=== PATIENT | male | born 1965 | race Caucasian/White ===

== ENCOUNTER 2022-02-05 14:35 | Day surgery (SDC) | payer MEDICARE ==
[2022-01-30 11:21] LABS: BASOPHILS # (AUTO) 0.1 X10'3 (0-0.2); BASOPHILS % (AUTO) 0.8 % (0-1); EOSINOPHILS # (AUTO) 0.1 X10'3 (0-0.9); EOSINOPHILS % (AUTO) 1.5 % (0-6); HEMATOCRIT 41.2 % (42.0-52.0); HEMOGLOBIN 14.1 g/dl (14.0-17.9); LYMPHOCYTES # (AUTO) 2.3 X10'3 (1.1-4.8); LYMPHOCYTES % (AUTO) 25.2 % (21-51); MEAN CORPUSCULAR HEMOGLOBIN 30.1 PG (27.0-31.0); MEAN CORPUSCULAR HGB CONC 34.4 g/dL (33.0-36.5); MEAN CORPUSCULAR VOLUME 87.6 FL (78-98); MEAN PLATELET VOLUME 8.3 FL (7.4-10.4); MONOCYTES # (AUTO) 0.5 X10'3 (0-0.9); MONOCYTES % (AUTO) 5.8 % (2-12); NEUTROPHILS % (AUTO) 66.7 % (42-75); PLATELET COUNT 161 X10'3 (140-440); RED CELL DISTRIBUTION WIDTH 13.2 % (11.5-14.5)
[2022-01-30 11:40] LABS: APTT 28 SECONDS (22-32)
[2022-01-30 12:14] LABS: ALBUMIN 4.4 G/DL (3.4-5.0); ANION GAP 11 (8-16); BLOOD UREA NITROGEN 12 MG/DL (7-18); BUN/CREATININE RATIO 15.4 (5.4-32.0); CHLORIDE 106 MMOL/L (99-107); CHOL/HDL RATIO 3.8 (0.00-4.99); CHOLESTEROL 170 MG/DL (0-200); CREATININE 0.78 MG/DL (0.60-1.10); GLUCOSE 92 MG/DL (70-104); HDL CHOLESTEROL 45 MG/DL (35-60); LDL CHOLESTEROL 95 MG/DL (50-100); POTASSIUM 4.2 MMOL/L (3.5-5.1); SODIUM 142 MMOL/L (135-145); TOTAL CARBON DIOXIDE 25.3 MMOL/L (24-32); TRIGLYCERIDES 102 MG/DL (20-135); eGFR > 90 ML/MIN
[~2022-02-05] VITALS: Ht 177.8 cm; Wt 114.0 kg
[2022-02-05] VITALS (9 sets, daily range): BP systolic 115–133; BP diastolic 75–90
[2022-02-05] MEDS ORDERED: LIDOcaine/PRILOcaine 5gm cream TP ONE ×2 (14:55→15:00)
[2022-02-05] MEDS ORDERED: normal saline 1,000 ML IV SCH (15:00)
[2022-02-05] MEDS ORDERED: diphenhydrAMINE 25mg capsule PO PRN (15:00)
[2022-02-05] MEDS ORDERED: LORazepam 0.5 MG tablet PO PRN (15:00)
[2022-02-05] MEDS ORDERED: ROSU20TA2 PO (15:20)
[2022-02-05] MEDS ORDERED: METO-539 PO (15:20)
[2022-02-05] MEDS ORDERED: MULT-1085 PO (15:20)
[2022-02-05] MEDS ORDERED: ASPI-1265 PO (15:20)
[2022-02-05] MEDS ORDERED: GABA600T13 PO (15:20)
[2022-02-05] MEDS ORDERED: IBUP-2417 PO (15:20)
[2022-02-05] MEDS ORDERED: verapamil 2.5 mg/ml inj IV ONE (16:09)
[2022-02-05] MEDS ORDERED: fentaNYL/PF 50MCG/1 ML 2ML syringe ONE (16:10)
[2022-02-05] MEDS ORDERED: midazolam 1 mg/ML 2ml injection ONE (16:10)
[2022-02-05] MEDS ORDERED: nitroGLYCERIN-Tridil 50MG/D5W 250 ML IV ONE (16:10)
[2022-02-05] MEDS ORDERED: iohexol 350MG/ML 100ml bottle IV ONE (16:10)
[2022-02-05] MEDS ORDERED: heparin 1,000unit/ml 10ml vial 10 ML ONE (16:10)
[2022-02-05] MEDS ORDERED: HYDROcodone/acetaminophen 5mg/325mg tablet PO PRN (18:55)
[2022-02-05] MEDS ORDERED: HYDROcodone/acetaminophen 10/325mg tab PO PRN (18:55)
== END 2022-02-05 20:45 | disposition home or self-care (01) ==
LOC: SSTAY O 14:35
PROVIDERS: ATTEND Internal Medicine Interventional Cardiology
DX: R94.39 Abnormal result of other cardiovascular function study (principal); R07.89 Other chest pain; I25.10 Atherosclerotic heart disease of native coronary artery without angina pectoris; I10 Essential (primary) hypertension; E78.5 Hyperlipidemia, unspecified; Z79.82 Long term (current) use of aspirin; Z79.899 Other long term (current) drug therapy
CPT/HCPCS: 36415; 80048; 80061; 85025; 85610; 85730; 93458; 99152; 99153; A6258; C1760; C1769; C1894; J1644; J2250; J3010; J3490; J7030; Q0163; Q9967; 93005; A4620; A5120; A6402

== ENCOUNTER 2022-03-16 11:45 | Inpatient (IN) | payer MEDICARE, SELFPAY ==
[2022-03-15 15:15] LABS: BASOPHILS % (AUTO) 0.7 % (0-1); EOSINOPHILS # (AUTO) 0.1 X10'3 (0-0.9); EOSINOPHILS % (AUTO) 1.5 % (0-6); LYMPHOCYTES # (AUTO) 2.2 X10'3 (1.1-4.8); LYMPHOCYTES % (AUTO) 30.5 % (21-51); MEAN CORPUSCULAR HEMOGLOBIN 30.4 PG (27.0-31.0); MEAN CORPUSCULAR HGB CONC 34.8 g/dL (33.0-36.5); MEAN CORPUSCULAR VOLUME 87.3 FL (78-98); MEAN PLATELET VOLUME 9.4 FL (7.4-10.4); MONOCYTES # (AUTO) 0.7 X10'3 (0-0.9); MONOCYTES % (AUTO) 9.7 % (2-12); NEUTROPHILS # (AUTO) 4.1 X10'3 (1.8-7.7); NEUTROPHILS % (AUTO) 57.6 % (42-75); PRE OP HEMATOCRIT 39.2 % (42.0-52.0); PRE OP HEMOGLOBIN 13.6 g/dL (14.0-17.9); PRE OP PLATELET COUNT 152 X10'3 (140-440); RED BLOOD COUNT 4.49 X10'6 (4.70-6.10); RED CELL DISTRIBUTION WIDTH 13.2 % (11.5-14.5)
[2022-03-15 15:27] LABS: PRE OP INR 1.1 INR; PRE OP PROTIME 10.9 SECONDS (9.0-12.0)
[2022-03-15 15:31] LABS: ALBUMIN/GLOBULIN RATIO 0.9 (1.1-1.5); ALKALINE PHOSPHATASE 55 IU/L (46-116); BLOOD UREA NITROGEN 11 MG/DL (7-18); BUN/CREATININE RATIO 12.2 (5.4-32.0); CHLORIDE 106 MMOL/L (99-107); PRE OP ALT 32 U/L (30-65); PRE OP ANION GAP 7 (8-16); PRE OP AST 19 U/L (10-37); PRE OP BILIRUB, TOTAL 0.3 MG/DL (0.0-1.0); PRE OP GLUCOSE 86 MG/DL (70-104); PRE OP POTASSIUM 4.2 MMOL/L (3.4-5.1); PRE OP SODIUM 142 MMOL/L (135-145); TOTAL CARBON DIOXIDE 29.2 MMOL/L (24-32); TOTAL PROTEIN 8.3 G/DL (6.4-8.2); eGFR 87 ML/MIN
[2022-03-15 15:35] LABS: HEMOGLOBIN A1C 5.4 % (4.5-6.2)
[2022-03-15 16:13] LABS: CLARITY,URINE SLIGHTLY CLOUDY (Clear); COLOR,URINE YELLOW (Yellow); GLUCOSE, URINE NEGATIVE (Neg); KETONES,URINE NEGATIVE (Neg); LEUKOCYTE ESTERASE ,URINE NEGATIVE (Neg); NITRITES, URINE NEGATIVE (Neg); OCCULT BLOOD,URINE NEGATIVE (Neg); PROTEIN,URINE NEGATIVE (Neg); UROBILINOGEN,URINE 0.2 E.U/dL (0.2-1.0)
[2022-03-15 16:18] LABS: UA COLLECTION TYPE CLN CATCH MIDSTREAM
[2022-03-15 16:25] LABS: BACTERIA,URINE NONE SEEN /HPF (Neg); RBC,URINE NONE SEEN /HPF (0-2); SQUAMOUS EPITHELIAL CELL,UR NONE SEEN /LPF (FEW)
[2022-03-15 16:26] LABS: RENAL CELLS, URINE FEW /HPF
[2022-03-15 16:27] LABS: AMORPHOUS PHOSPHATES 2+; WBC,URINE 0-4 /HPF (0-4)
[~2022-03-16] VITALS: Ht 177.8 cm; Wt 257.6 kg
[2022-03-16 06:36] LABS: ABG BASE EXCESS 0.8 mmol/L (-2.0-2.0); ABG HCO3 25.7 mmol/L (22.0-26.0); ABG OXYGEN SATURATION 94.8 % (94-97); ABG PCO2 (T) 42.1 mmHg (35.0-48.0); ALLEN'S TEST POSITIVE; FCOHb 0.5 % (0.0-3.9); FMetHb 0.1 % (0.0-1.5); FO2Hb 94.2 % (94-97); TOTAL HEMOGLOBIN 14.3 G/dl (14.0-18.0)
[~2022-03-16 11:45] MED LIST: ASPI-1265 PO; DOCUMENT DATE & TIME OF BETA-BLOCKER PO ONE; GABA600T13 PO; IBUP-2417 PO; METO-539 PO; MULT-1085 PO; ROSU20TA2 PO; albuterol 2.5 MG/3 ML nebule NEB ONE; mupirocin 2% nasal ointment 1gm UD NS ONE
[2022-03-17] VITALS (20 sets, daily range): BP systolic 95–143; BP diastolic 50–77
[2022-03-17] MEDS ORDERED: ringers solution, lacted 1,000 ML IV SCH (05:00)
[2022-03-17] MEDS ORDERED: vancomycin 1,500 MG in NS 300ml IV soln IV ONE (05:30)
[2022-03-17] MEDS ORDERED: Insulin Reg/NS 100units/100mL 100 ML IV SCH ×2 (05:30→11:10)
[2022-03-17] MEDS ORDERED: LORazepam 2 mg/ml vial IV ONE (05:30)
[2022-03-17] MEDS ORDERED: ceFAZolin inj. 2,000 MG in dextrose 5%-water 100 ML IV ONE (05:30)
[2022-03-17] MEDS ORDERED: famotidine 20mg tablet PO ONE (05:30)
[2022-03-17] MEDS ORDERED: mupirocin 2% nasal ointment 1gm UD NS ONE (05:30)
[2022-03-17] MEDS ORDERED: DOCUMENT DATE & TIME OF BETA-BLOCKER PO ONE (05:30)
[2022-03-17] MEDS ORDERED: epiNEPHrine 1 mg/ml inj ONE (05:39)
[2022-03-17] MEDS ORDERED: ceFAZolin 1000mg inj ONE (05:39)
[2022-03-17] MEDS ORDERED: LORazepam 2 mg/ml vial ONE (06:42)
[2022-03-17] MEDS ORDERED: SUfentanil 50mcg/ml 1ml amp IV ONE (07:37)
[2022-03-17] MEDS ORDERED: DOPamine/D5W 400mg/250ml bag IV ONE (07:40)
[2022-03-17] MEDS ORDERED: aminophylline 500mg/20ml vial ONE (07:40)
[2022-03-17] MEDS ORDERED: LIDOCAINE 1% w/preservative (10 MG/ML) inj. 10mL VIAL ONE (07:40)
[2022-03-17] MEDS ORDERED: isoflurane 100ml inhalation liquid IH ONE (07:40)
[2022-03-17] MEDS ORDERED: nitroGLYCERIN in D5W 50mg/250ml (Tridil) infusion IV ONE (07:40)
--- NOTE | 2022-03-17 07:45 | NUR ---
Patient to [facility]
[2022-03-17] MEDS ORDERED: heparin 10,000 units/1 ML INJ ONE ×2 (08:00)
[2022-03-17] MEDS ORDERED: calcium chloride 100 MG/1 ML inj IV ONE (08:00)
[2022-03-17] MEDS ORDERED: mannitol 12.5gm/50mL VIAL IV ONE (08:00)
[2022-03-17] MEDS ORDERED: NORepinephrine 1 mg/ml inj IV ONE (08:00)
[2022-03-17] MEDS ORDERED: methylPREDNISolone sod succ 1000mg vial ONE (08:00)
[2022-03-17] MEDS ORDERED: aminocaproic acid 250 MG/1 ML inj. ONE (08:00)
[2022-03-17] MEDS ORDERED: sodium bicarbonate (8.4%) 1 mEq/ml syringe ONE (08:00)
[2022-03-17] MEDS ORDERED: heparin 10,000 units/1 ML INJ IR ONE (08:00)
[2022-03-17] MEDS ORDERED: MAGNESIUM SULFATE 4 MEQ/ML (5gm/10ml) injection ONE (08:00)
[2022-03-17] MEDS ORDERED: papaverine 30 mg/ml 2ml inj. ONE (08:00)
[2022-03-17] MEDS ORDERED: albumin (human) 25% 100 ML IV solution IV ONE (08:00)
[2022-03-17] MEDS ORDERED: papaverine 30 mg/ml 2ml inj. IA ONE (08:00)
[2022-03-17] MEDS ORDERED: heparin 1,000 units/ml 10ml inj ONE (08:00)
[2022-03-17] MEDS ORDERED: rocuronium 10mg/ml inj IV ONE ×2 (08:03→11:22)
[2022-03-17] MEDS ORDERED: propofol inj 20 ML IV ONE (08:03)
[2022-03-17] MEDS ORDERED: LIDOcaine 2% (20mg/ml) 5ml vial ONE (08:03)
[2022-03-17 08:29] LABS: ABG BASE EXCESS -0.3 mmol/L (-2.0-2.0); ABG HCO3 23.4 mmol/L (22.0-26.0); ABG OXYGEN SATURATION 99.4 % (94-97); ABG PCO2 35.5 mmHg (35.0-48.0); ABG PO2 206.6 mmHg (75.0-100.0); CL (ABG) 105 mmol/L (98-110); FCOHb 0.7 % (0.0-3.9); FMetHb 0.3 % (0.0-1.5); FO2Hb 98.4 % (94-97); GLUCOSE (ABG) 96 mg/dl (70-105); K (ABG) 4.3 mmol/L (3.5-5.0); TOTAL HEMOGLOBIN 13.6 G/dl (14.0-18.0)
[2022-03-17] MEDS ORDERED: BUPIVAcaine/PF 5 mg/ml 10ml ONE (08:45)
[2022-03-17 09:42] LABS: ABG BASE EXCESS 1.3 mmol/L (-2.0-2.0); ABG HCO3 25.2 mmol/L (22.0-26.0); ABG OXYGEN SATURATION 99.6 % (94-97); ABG PO2 439.1 mmHg (75.0-100.0); CL (ABG) 102 mmol/L (98-110); FCOHb 0.2 % (0.0-3.9); FMetHb 0.3 % (0.0-1.5); FO2Hb 99.1 % (94-97); GLUCOSE (ABG) 100 mg/dl (70-105); IONIZED CA (ABG) 0.92 mmol/L (1.10-1.43); TOTAL HEMOGLOBIN 10.7 G/dl (14.0-18.0)
[2022-03-17 10:14] LABS: ABG BASE EXCESS VENOUS -2.8 mmol/L (-2.0 - 2.0); ABG HCO3 VENOUS 22.7 mmol/L (21.0-28.0); ABG PCO2 VENOUS 41.8 mmHg (41.0-54.0); ABG PO2 VENOUS 46.4 mmHg (25.0-35.0); CL (ABG) 102 mmol/L (98-110); FCOHb VENOUS 0.8 %; FHHb VENOUS 19.5 %; FMetHb VENOUS 0.3 % (0.0 - 0.5); FO2Hb VENOUS 79.4 %; GLUCOSE (ABG) 110 mg/dl (70-105); IONIZED CA (ABG) 1.01 mmol/L (1.10-1.43); K (ABG) 4.5 mmol/L (3.5-5.0); TOTAL HEMOGLOBIN 11.1 G/dl (14.0-18.0)
[2022-03-17 10:38] LABS: ABG OXYGEN SATURATION 99.5 % (94-97); ABG PO2 409.5 mmHg (75.0-100.0); CL (ABG) 101 mmol/L (98-110); FCOHb 0.3 % (0.0-3.9); FMetHb 0.3 % (0.0-1.5); FO2Hb 98.9 % (94-97); GLUCOSE (ABG) 120 mg/dl (70-105); IONIZED CA (ABG) 1.07 mmol/L (1.10-1.43); K (ABG) 4.2 mmol/L (3.5-5.0); TOTAL HEMOGLOBIN 9.6 G/dl (14.0-18.0)
[2022-03-17 11:06] LABS: ABG BASE EXCESS 0.5 mmol/L (-2.0-2.0); ABG OXYGEN SATURATION 89.2 % (94-97); ABG PO2 55.9 mmHg (75.0-100.0); CL (ABG) 104 mmol/L (98-110); FCOHb 0.9 % (0.0-3.9); FMetHb 0.3 % (0.0-1.5); FO2Hb 88.1 % (94-97); GLUCOSE (ABG) 123 mg/dl (70-105); IONIZED CA (ABG) 1.11 mmol/L (1.10-1.43); K (ABG) 4.2 mmol/L (3.5-5.0); TOTAL HEMOGLOBIN 10.7 G/dl (14.0-18.0)
[2022-03-17 11:09] LABS: ACTIVATED CLOTTING TIME 121 SEC (101-148)
[2022-03-17] MEDS ORDERED: potassium CL 10mEq/100ml bag 100 ML IV PRN (11:10)
[2022-03-17] MEDS ORDERED: HYDROcodone/acetaminophen 10/325mg tab PO PRN (11:10)
[2022-03-17] MEDS ORDERED: albumin (Human) 5% 250ml 250 ML IV PRN (11:10)
[2022-03-17] MEDS ORDERED: sodium chloride 0.45% 1,000 ML IV SCH (11:10)
[2022-03-17] MEDS ORDERED: dextrose 50%-water 50ml dispensing syringe IV PRN (11:10)
[2022-03-17] MEDS ORDERED: morphine 2 MG/ML inj. syringe IV PRN (11:10)
[2022-03-17] MEDS ORDERED: insulin glargine (Lantus) pen - multi-dose SQ PRN (11:10)
[2022-03-17] MEDS ORDERED: morphine 4 MG/ML inj SYRINge IV PRN (11:10)
[2022-03-17] MEDS ORDERED: mineral oil 133ml enema RC PRN (11:10)
[2022-03-17] MEDS ORDERED: magnesium citrate 296ml oral solution PO PRN (11:10)
[2022-03-17] MEDS ORDERED: ondansetron/PF 4mg/2ml inj IV PRN (11:10)
[2022-03-17] MEDS ORDERED: bisacodyl 10mg suppository rectal RC PRN (11:10)
[2022-03-17] MEDS ORDERED: Neutra Phos packet PO PRN (11:10)
[2022-03-17] MEDS ORDERED: magnesium hydroxide 30ml (MOM) UD suspension PO PRN (11:10)
[2022-03-17] MEDS ORDERED: sodium phosphate inj. 15 MMOL in dextrose 5%-water 250 ML IV PRN (11:10)
[2022-03-17] MEDS ORDERED: sodium phosphate inj. 30 MMOL in dextrose 5%-water 250 ML IV PRN (11:10)
[2022-03-17] MEDS ORDERED: nitroGLYCERIN-Tridil 50MG/D5W 250 ML IV SCH (11:10)
[2022-03-17] MEDS ORDERED: magnesium 4gm in 100ml NS 100 ML IV PRN (11:10)
[2022-03-17] MEDS ORDERED: potassium Cl 20 mEq SR tablet PO PRN (11:10)
[2022-03-17] MEDS ORDERED: NORepinephrine 8mg/ 250ml NS 250 ML IV PRN (11:10)
[2022-03-17] MEDS ORDERED: niCARDipine-NS 40mg/200ml IVPB 200 ML IV PRN (11:10)
[2022-03-17] MEDS ORDERED: metoclopramide 5 mg/ml inj IV PRN (11:10)
[2022-03-17] MEDS ORDERED: acetaminophen 325mg tablet PO PRN ×2 (11:10)
--- NOTE | 2022-03-17 11:26 | NUR ---
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 Pt would benefit from nutrition therapy education once stable. Noted lipid panel from 01/30/22 is WNL. Will continue to follow. Addendum: 03/17/22 at [address] Amended: Links added.
[2022-03-17] MEDS ORDERED: albuterol 2.5 MG/3 ML nebule NEB PRN (11:50)
[2022-03-17 12:04] LABS: BASOPHILS % (AUTO) 0.2 % (0-1); EOSINOPHILS % (AUTO) 0.4 % (0-6); HEMATOCRIT 35.1 % (42.0-52.0); HEMOGLOBIN 12.3 g/dl (14.0-17.9); LYMPHOCYTES # (AUTO) 1.3 X10'3 (1.1-4.8); LYMPHOCYTES % (AUTO) 11.8 % (21-51); MEAN CORPUSCULAR HEMOGLOBIN 30.7 PG (27.0-31.0); MEAN CORPUSCULAR HGB CONC 34.9 g/dL (33.0-36.5); MEAN CORPUSCULAR VOLUME 87.8 FL (78-98); MEAN PLATELET VOLUME 8.9 FL (7.4-10.4); MONOCYTES # (AUTO) 0.5 X10'3 (0-0.9); MONOCYTES % (AUTO) 4.2 % (2-12); NEUTROPHILS # (AUTO) 9.1 X10'3 (1.8-7.7); NEUTROPHILS % (AUTO) 83.4 % (42-75); PLATELET COUNT 92 X10'3 (140-440); RED CELL DISTRIBUTION WIDTH 12.9 % (11.5-14.5); WHITE BLOOD COUNT 10.9 X10'3 (4.5-11.0)
[2022-03-17 12:10] LABS: ABG BASE EXCESS -0.2 mmol/L (-2.0-2.0); ABG HCO3 23.1 mmol/L (22.0-26.0); ABG OXYGEN SATURATION 98.9 % (94-97); ABG PCO2 (T) 32.6 mmHg (35.0-48.0); ABG PO2 (T) 215.5 mmHg (75.0-100.0); FCOHb 0.3 % (0.0-3.9); FMetHb 0.4 % (0.0-1.5); FO2Hb 98.2 % (94-97); PATIENT TEMPERATURE 36.4; PEEP 7 cm H2O; RESPIRATORY RATE 12 b/min; TIDAL VOLUME 750 mL; TOTAL HEMOGLOBIN 13.1 G/dl (14.0-18.0)
[2022-03-17 12:16] LABS: APTT 31 SECONDS (22-32)
[2022-03-17] MEDS: gabapentin 300mg capsule PO SCH ×2 (12:20→20:18)
[2022-03-17 12:21] LABS: ALANINE AMINOTRANSFERASE 20 U/L (12-78); ALBUMIN 3.7 G/DL (3.4-5.0); ALBUMIN/GLOBULIN RATIO 1.5 (1.1-1.5); ALKALINE PHOSPHATASE 41 IU/L (46-116); ANION GAP 10 (8-16); ASPARTATE AMINO TRANSFERASE 28 U/L (10-37); BILIRUBIN,TOTAL 0.7 MG/DL (0.1-1.0); BLOOD UREA NITROGEN 11 MG/DL (7-18); BUN/CREATININE RATIO 12.9 (5.4-32.0); CALCIUM 7.9 MG/DL (8.5-10.1); CHLORIDE 105 MMOL/L (99-107); CREATININE 0.85 MG/DL (0.60-1.10); GLUCOSE 126 MG/DL (70-104); MAGNESIUM 2.2 MG/DL (1.5-2.4); PHOSPHORUS 2.8 MG/DL (2.3-4.5); POTASSIUM 4.1 MMOL/L (3.5-5.1); SODIUM 141 MMOL/L (135-145); TOTAL CARBON DIOXIDE 26.3 MMOL/L (24-32); TOTAL PROTEIN 6.1 G/DL (6.4-8.2); eGFR > 90 ML/MIN
[2022-03-17 12:39] LABS: ABG HCO3 25.2 mmol/L (22.0-26.0); ABG OXYGEN SATURATION 96.8 % (94-97); ABG PCO2 (T) 47.3 mmHg (35.0-48.0); ABG PO2 (T) 98.6 mmHg (75.0-100.0); FCOHb 0.3 % (0.0-3.9); FMetHb 0.3 % (0.0-1.5); FO2Hb 96.2 % (94-97); PATIENT TEMPERATURE 36.9; PEEP 5 cm H2O; TOTAL HEMOGLOBIN 13.5 G/dl (14.0-18.0)
--- NOTE | 2022-03-17 12:42 | NUR ---
Dr Aggarwal called on current abg and pt waking up. Order given to extubate.
[2022-03-17] MEDS: potassium Cl 20mEq/100mL bag 100 ML IV PRN ×2 (12:45→13:46)
[2022-03-17] MEDS: magnesium 2GM in 50ml NS 50 ML IV PRN ×2 (12:46→18:00)
[2022-03-17] MEDS: ketorolac tromethamine 15mg/ml inj. IV SCH ×2 (14:18→20:19)
[2022-03-17] MEDS: ceFAZolin/D5W- 1GM premix 50 ML IV SCH (16:46)
[2022-03-17 17:41] LABS: BASOPHILS % (AUTO) 0 % (0-1); EOSINOPHILS % (AUTO) 0.1 % (0-6); HEMATOCRIT 34.8 % (42.0-52.0); HEMOGLOBIN 11.8 g/dl (14.0-17.9); LYMPHOCYTES # (AUTO) 0.6 X10'3 (1.1-4.8); LYMPHOCYTES % (AUTO) 4.3 % (21-51); MEAN CORPUSCULAR HGB CONC 33.9 g/dL (33.0-36.5); MEAN CORPUSCULAR VOLUME 88.7 FL (78-98); MEAN PLATELET VOLUME 9.5 FL (7.4-10.4); MONOCYTES # (AUTO) 0.4 X10'3 (0-0.9); MONOCYTES % (AUTO) 2.8 % (2-12); NEUTROPHILS # (AUTO) 11.8 X10'3 (1.8-7.7); NEUTROPHILS % (AUTO) 92.8 % (42-75); PLATELET COUNT 103 X10'3 (140-440); RED BLOOD COUNT 3.93 X10'6 (4.70-6.10); RED CELL DISTRIBUTION WIDTH 13.1 % (11.5-14.5); WHITE BLOOD COUNT 12.7 X10'3 (4.5-11.0)
[2022-03-17 17:50] LABS: ANION GAP 11 (8-16); BLOOD UREA NITROGEN 13 MG/DL (7-18); CHLORIDE 108 MMOL/L (99-107); CREATININE 1.08 MG/DL (0.60-1.10); GLUCOSE 133 MG/DL (70-104); MAGNESIUM 2.3 MG/DL (1.5-2.4); PHOSPHORUS 2.9 MG/DL (2.3-4.5); POTASSIUM 4.7 MMOL/L (3.5-5.1); SODIUM 144 MMOL/L (135-145); TOTAL CARBON DIOXIDE 25.1 MMOL/L (24-32); eGFR 70 ML/MIN
--- NOTE | 2022-03-17 18:25 | NUR ---
Problems reprioritized. Patient report given, questions answered & plan of care reviewed with Praveena BRIZUELA.
--- NOTE | 2022-03-17 18:30 | NUR ---
Patient in room CICU 2013. I have received report from Garret BRIZUELA and had the opportunity to ask questions and assume patient care.
[2022-03-17] MEDS: sennosides/docusate sodium tablet PO SCH (20:18)
[2022-03-17] MEDS: vancomycin/NS 1 GM ADD-VANTAGE 250 ML IV SCH (20:18)
[2022-03-17] MEDS: mupirocin 2% nasal ointment 1gm UD NS SCH (20:19)
[2022-03-17] MEDS: atorvastatin 10mg tablet PO SCH (21:00)
[2022-03-18] VITALS (19 sets, daily range): BP systolic 92–150; BP diastolic 48–85
--- NOTE | 2022-03-18 00:15 | NUR ---
Patient appears to be sleeping at this time. Will continue to monitor.
[2022-03-18] MEDS: ceFAZolin/D5W- 1GM premix 50 ML IV SCH ×3 (01:02→15:30)
[2022-03-18] MEDS: ketorolac tromethamine 15mg/ml inj. IV SCH ×2 (02:49→07:31)
[2022-03-18] MEDS: HYDROcodone/acetaminophen 10/325mg tab PO PRN ×4 (02:52→16:59)
[2022-03-18 02:58] LABS: BASOPHILS % (AUTO) 0.1 % (0-1); EOSINOPHILS % (AUTO) 0 % (0-6); HEMATOCRIT 31.9 % (42.0-52.0); HEMOGLOBIN 10.9 g/dl (14.0-17.9); LYMPHOCYTES # (AUTO) 0.7 X10'3 (1.1-4.8); LYMPHOCYTES % (AUTO) 5.5 % (21-51); MEAN CORPUSCULAR HEMOGLOBIN 30.1 PG (27.0-31.0); MEAN CORPUSCULAR HGB CONC 34.3 g/dL (33.0-36.5); MEAN CORPUSCULAR VOLUME 87.8 FL (78-98); MEAN PLATELET VOLUME 9.8 FL (7.4-10.4); MONOCYTES # (AUTO) 0.5 X10'3 (0-0.9); MONOCYTES % (AUTO) 3.7 % (2-12); NEUTROPHILS # (AUTO) 11.9 X10'3 (1.8-7.7); NEUTROPHILS % (AUTO) 90.7 % (42-75); PLATELET COUNT 100 X10'3 (140-440); RED BLOOD COUNT 3.63 X10'6 (4.70-6.10); RED CELL DISTRIBUTION WIDTH 12.7 % (11.5-14.5); WHITE BLOOD COUNT 13.1 X10'3 (4.5-11.0)
[2022-03-18 03:13] LABS: ALANINE AMINOTRANSFERASE 23 U/L (12-78); ALBUMIN 3.6 G/DL (3.4-5.0); ALBUMIN/GLOBULIN RATIO 1.4 (1.1-1.5); ALKALINE PHOSPHATASE 37 IU/L (46-116); ANION GAP 9 (8-16); ASPARTATE AMINO TRANSFERASE 27 U/L (10-37); BILIRUBIN,TOTAL 0.5 MG/DL (0.1-1.0); BLOOD UREA NITROGEN 16 MG/DL (7-18); BUN/CREATININE RATIO 17.8 (5.4-32.0); CALCIUM 7.8 MG/DL (8.5-10.1); CHLORIDE 105 MMOL/L (99-107); GLUCOSE 153 MG/DL (70-104); MAGNESIUM 2.2 MG/DL (1.5-2.4); POTASSIUM 4.7 MMOL/L (3.5-5.1); SODIUM 140 MMOL/L (135-145); TOTAL CARBON DIOXIDE 25.9 MMOL/L (24-32); TOTAL PROTEIN 6.2 G/DL (6.4-8.2); eGFR 87 ML/MIN
[2022-03-18] MEDS: magnesium 2GM in 50ml NS 50 ML IV PRN (04:33)
--- NOTE | 2022-03-18 05:15 | NUR ---
Stood patient at side of the bed with two person assist. Tolerated well. Returned to bed without incident. Medicated for pain level of 7/10 per patient statement.
--- NOTE | 2022-03-18 06:33 | NUR ---
Problems reprioritized. Patient report given, questions answered & plan of care reviewed with Sofya BRIZUELA.
[2022-03-18] MEDS: sennosides/docusate sodium tablet PO SCH ×2 (07:31→20:12)
[2022-03-18] MEDS: mupirocin 2% nasal ointment 1gm UD NS SCH ×2 (07:31→20:17)
[2022-03-18] MEDS: metoprolol tartrate 12.5mg (1/2 tablet) PO SCH ×2 (07:31→20:13)
[2022-03-18] MEDS: gabapentin 300mg capsule PO SCH ×3 (07:31→20:11)
[2022-03-18] MEDS: vancomycin/NS 1 GM ADD-VANTAGE 250 ML IV SCH ×2 (08:39→19:59)
[2022-03-18] MEDS: aspirin 81mg tab.chew PO SCH (08:39)
[2022-03-18] MEDS: JUVEN Smoothie Arginine/Glut./Ca2+Bmb (Juven 19.3pkt) 240ml cup PO SCH ×2 (13:00→17:33)
--- NOTE | 2022-03-18 17:38 | NUR ---
RN called Dr. Aggarwal to notify him of pt's c/o back spasms and request for Ibuprofen. Dr. Aggarwal here to see pt. Order for Toradol rec'd.
[2022-03-18] MEDS: atorvastatin 10mg tablet PO SCH (20:11)
[2022-03-18] MEDS: ketorolac trometh. 30mg/ml inj. IV SCH (20:15)
[2022-03-19] VITALS (7 sets, daily range): BP systolic 123–176; BP diastolic 64–78
[2022-03-19] MEDS: ceFAZolin/D5W- 1GM premix 50 ML IV SCH (01:47)
[2022-03-19] MEDS: ketorolac trometh. 30mg/ml inj. IV SCH ×4 (02:09→20:20)
[2022-03-19 06:23] LABS: ACT @ 1.70 U 320 SEC (193-297); ACT @ 2.84 U 462 SEC (260-420); BASELINE ACT 148 SEC (101-148)
[2022-03-19 06:27] LABS: BASOPHILS % (AUTO) 0 % (0-1); EOSINOPHILS % (AUTO) 0 % (0-6); HEMATOCRIT 29.5 % (42.0-52.0); LYMPHOCYTES # (AUTO) 0.9 X10'3 (1.1-4.8); LYMPHOCYTES % (AUTO) 6.7 % (21-51); MEAN CORPUSCULAR HEMOGLOBIN 30.1 PG (27.0-31.0); MEAN CORPUSCULAR HGB CONC 33.9 g/dL (33.0-36.5); MEAN CORPUSCULAR VOLUME 88.9 FL (78-98); MEAN PLATELET VOLUME 9.9 FL (7.4-10.4); MONOCYTES # (AUTO) 0.9 X10'3 (0-0.9); NEUTROPHILS # (AUTO) 11.6 X10'3 (1.8-7.7); NEUTROPHILS % (AUTO) 86.3 % (42-75); PLATELET COUNT 82 X10'3 (140-440); RED BLOOD COUNT 3.32 X10'6 (4.70-6.10); RED CELL DISTRIBUTION WIDTH 13.2 % (11.5-14.5); WHITE BLOOD COUNT 13.4 X10'3 (4.5-11.0)
[2022-03-19 06:37] LABS: ALBUMIN 3.5 G/DL (3.4-5.0); ANION GAP 7 (8-16); BLOOD UREA NITROGEN 20 MG/DL (7-18); CALCIUM 8.2 MG/DL (8.5-10.1); CHLORIDE 105 MMOL/L (99-107); CREATININE 0.77 MG/DL (0.60-1.10); GLUCOSE 121 MG/DL (70-104); MAGNESIUM 2.1 MG/DL (1.5-2.4); SODIUM 141 MMOL/L (135-145); TOTAL CARBON DIOXIDE 28.7 MMOL/L (24-32); eGFR > 90 ML/MIN
--- NOTE | 2022-03-19 06:52 | NUR ---
Patient in room PCU 3019. I have received report from Kiki and had the opportunity to ask questions and assume patient care.
[2022-03-19] MEDS ORDERED: furosemide 40mg/4ml inj IV ONE (07:00)
[2022-03-19] MEDS: mupirocin 2% nasal ointment 1gm UD NS SCH (08:00)
[2022-03-19] MEDS: metoprolol tartrate 12.5mg (1/2 tablet) PO SCH ×2 (08:01→20:22)
[2022-03-19] MEDS: gabapentin 300mg capsule PO SCH (08:02)
[2022-03-19] MEDS: aspirin 81mg tab.chew PO SCH (08:02)
[2022-03-19] MEDS: pantoprazole 40mg Tablet.DR PO SCH (08:02)
[2022-03-19] MEDS: sennosides/docusate sodium tablet PO SCH ×2 (08:03→20:22)
[2022-03-19] MEDS: JUVEN Smoothie Arginine/Glut./Ca2+Bmb (Juven 19.3pkt) 240ml cup PO SCH ×3 (08:20→18:11)
--- NOTE | 2022-03-19 12:30 | NUR ---
D/C'd IJ per MD orders
--- NOTE | 2022-03-19 12:35 | NUR ---
[facility] d/c'd CT x 2 and pacer wires. Pt tolerated well. Monitoring IJ and CT site
--- NOTE | 2022-03-19 17:59 | NUR ---
[facility] documentation: I have reviewed and agree with all interventions, assessments performed and documented by GELACIO Victor.
--- NOTE | 2022-03-19 18:14 | NUR ---
Problems reprioritized. Patient report given, questions answered & plan of care reviewed with Kiki BRIZUELA.
[2022-03-19] MEDS: atorvastatin 10mg tablet PO SCH (20:22)
[2022-03-20] MEDS: ketorolac trometh. 30mg/ml inj. IV SCH ×3 (02:13→14:38)
[2022-03-20 02:55] VITALS: BP 127/73
[2022-03-20 06:29] LABS: BASOPHILS % (AUTO) 0.3 % (0-1); EOSINOPHILS % (AUTO) 0.3 % (0-6); HEMATOCRIT 32.1 % (42.0-52.0); HEMOGLOBIN 10.9 g/dl (14.0-17.9); LYMPHOCYTES # (AUTO) 2.1 X10'3 (1.1-4.8); LYMPHOCYTES % (AUTO) 22.7 % (21-51); MEAN CORPUSCULAR HEMOGLOBIN 30.2 PG (27.0-31.0); MEAN CORPUSCULAR HGB CONC 33.9 g/dL (33.0-36.5); MEAN CORPUSCULAR VOLUME 89.1 FL (78-98); MEAN PLATELET VOLUME 9.5 FL (7.4-10.4); MONOCYTES # (AUTO) 0.8 X10'3 (0-0.9); MONOCYTES % (AUTO) 9.1 % (2-12); NEUTROPHILS # (AUTO) 6.2 X10'3 (1.8-7.7); NEUTROPHILS % (AUTO) 67.6 % (42-75); PLATELET COUNT 91 X10'3 (140-440); RED BLOOD COUNT 3.61 X10'6 (4.70-6.10); RED CELL DISTRIBUTION WIDTH 13.2 % (11.5-14.5); WHITE BLOOD COUNT 9.2 X10'3 (4.5-11.0)
--- NOTE | 2022-03-20 06:53 | NUR ---
Patient in room PCU 3019. I have received report from Kiki BRIZUELA and had the opportunity to ask questions and assume patient care.
[2022-03-20 06:55] VITALS: BP 118/71
[2022-03-20 07:04] LABS: ALBUMIN 3.4 G/DL (3.4-5.0); ANION GAP 8 (8-16); BLOOD UREA NITROGEN 24 MG/DL (7-18); BUN/CREATININE RATIO 27.6 (5.4-32.0); CALCIUM 8.2 MG/DL (8.5-10.1); CHLORIDE 106 MMOL/L (99-107); CREATININE 0.87 MG/DL (0.60-1.10); GLUCOSE 88 MG/DL (70-104); MAGNESIUM 1.9 MG/DL (1.5-2.4); PHOSPHORUS 2.6 MG/DL (2.3-4.5); SODIUM 145 MMOL/L (135-145); eGFR 90 ML/MIN
[2022-03-20] MEDS: sennosides/docusate sodium tablet PO SCH (08:06)
[2022-03-20] MEDS: aspirin 81mg tab.chew PO SCH (08:06)
[2022-03-20] MEDS: metoprolol tartrate 12.5mg (1/2 tablet) PO SCH (08:06)
[2022-03-20] MEDS: pantoprazole 40mg Tablet.DR PO SCH (08:07)
[2022-03-20] MEDS: JUVEN Smoothie Arginine/Glut./Ca2+Bmb (Juven 19.3pkt) 240ml cup PO SCH ×2 (08:59→13:29)
[2022-03-20] MEDS ORDERED: magnesium oxide 400mg tablet PO ONE (10:15)
[2022-03-20 11:00] VITALS: BP 92/61
[2022-03-20] MEDS ORDERED: traMADol 50MG tablet PO PRN (13:25)
[2022-03-20] MEDS ORDERED: LOP12.5T PO (13:47)
[2022-03-20] MEDS ORDERED: POTA-197 PO (13:47)
[2022-03-20] MEDS ORDERED: PANT40TA54 PO (13:47)
[2022-03-20] MEDS ORDERED: ASPI81TA53 PO (13:47)
[2022-03-20] MEDS ORDERED: ATOR10TA PO (13:47)
[2022-03-20] MEDS ORDERED: TRAM50TA2 PO (13:47)
[2022-03-20] MEDS ORDERED: FURO20TA4 PO (13:47)
[2022-03-20 15:00] VITALS: BP 122/69
--- NOTE | 2022-03-20 15:30 | NUR ---
[facility] documentation: I have reviewed and agree with all interventions, assessments performed and documented by GELACIO Victor.
--- NOTE | 2022-03-20 15:30 | NUR ---
Patient given discharge instructions with understanding verbalized. PIV discontinued earlier in Left AC without any problems, patient tolerated well. Tele box #[id number] taken to telecommunications facility examiner. Patient via wheelchair with personal belongings to private vehicle, condition stable. Sternal precautions instructed and demonstrated.
[2022-03-21] MEDS ORDERED: furosemide 20MG tablet PO SCH (08:00)
[2022-03-21] MEDS ORDERED: potassium chloride 10mEq ER tablet PO SCH (08:00)
== END 2022-03-20 15:48 | disposition home or self-care (01) | DRG 236 ==
LOC: CICU 2S 03-17 05:09 → PCU 3S 03-18 20:51
PROVIDERS: ADMIT Thoracic Surgery (Cardiothoracic Vascular Surgery); ATTEND Thoracic Surgery (Cardiothoracic Vascular Surgery)
PROC: 02100Z8 Bypass Coronary Artery, One Artery from Right Internal Mammary, Open Approach (ICD-10-PCS; 2022-03-17)
PROC: 021009W Bypass Coronary Artery, One Artery from Aorta with Autologous Venous Tissue, Open Approach (ICD-10-PCS; 2022-03-17)
PROC: 06BQ4ZZ Excision of Left Saphenous Vein, Percutaneous Endoscopic Approach (ICD-10-PCS; 2022-03-17)
PROC: 5A1221Z Performance of Cardiac Output, Continuous (ICD-10-PCS; 2022-03-17)
PROC: B24BZZ4 Ultrasonography of Heart with Aorta, Transesophageal (ICD-10-PCS; 2022-03-17)
PROC: 02100Z9 Bypass Coronary Artery, One Artery from Left Internal Mammary, Open Approach (ICD-10-PCS; principal; 2022-03-17 07:40)
DX: I25.10 Atherosclerotic heart disease of native coronary artery without angina pectoris (principal); I10 Essential (primary) hypertension; Z79.899 Other long term (current) drug therapy; Z79.82 Long term (current) use of aspirin
CPT/HCPCS: 36415; 36600; 71045; 71046; 80048; 80053; 81001; 82330; 82435; 82803; 82947; 82948; 83036; 83735; 84100; 84132; 84295; 85018; 85025; 85347; 85610; 85730; 86885; 86900; 86901; 86920; 87081; 87811; 93005; 93312; 93325; 93880; 93970; 94002; 94010; 94760; 97110; 97116; 97162; 97530; A4333; A4618; A6258; A6449; A7000; C1751; G0378; J0171; J0280; J0690; J1265; J1644; J1815; J1885; J1940; J2060; J2150; J2270; J2440; J2704; J2930; J3370; J3475; J3480; J3490; J7030; J7040; J7050; J7060; J7120; P9045; P9047